=== PATIENT | male | born 1995 | race Two or more races ===

== ENCOUNTER → 2016-06-21 | Outpatient (CLI) | payer BC | END | disposition home or self-care (01) | LOC: LAB 07:57 | PROVIDERS: ATTEND Internal Medicine Cardiovascular Disease | DX: E03.9 Hypothyroidism, unspecified (principal); R53.81 Other malaise; E23.0 Hypopituitarism; E23.7 Disorder of pituitary gland, unspecified | CPT/HCPCS: 36415; 82024; 82533; 84403; 84439; 84443 ==